=== PATIENT | male | born 1970 | race Asian ===

== ENCOUNTER 2018-12-02 21:08 | Outpatient (CLI) | payer OTHER | END 2018-12-02 21:12 | disposition short-term general hospital (02) | LOC: AMB 21:08 | DX: S21.302A Unspecified open wound of left front wall of thorax with penetration into thoracic cavity, initial encounter (principal); X95.9XXA Assault by unspecified firearm discharge, initial encounter; Y92.017 Garden or yard in single-family (private) house as the place of occurrence of the external cause | CPT/HCPCS: A0425; A0427 ==

== ENCOUNTER 2018-12-02 21:17 | Emergency (ER) | payer OTHER ==
[~2018-12-02] VITALS: Ht 172.7 cm; Wt 113.4 kg
[2018-12-02 21:17] VITALS: TEMP 98.2
[2018-12-02 21:55] VITALS: BP 122/65
== END 2018-12-02 21:55 | disposition short-term general hospital (02) ==
LOC: ED 21:17
PROC: 0T9B70Z Drainage of Bladder with Drainage Device, Via Natural or Artificial Opening (ICD-10-PCS; principal; 2018-12-02)
DX: S21.301A Unspecified open wound of right front wall of thorax with penetration into thoracic cavity, initial encounter (principal); S27.1XXA Traumatic hemothorax, initial encounter; X95.9XXA Assault by unspecified firearm discharge, initial encounter
CPT/HCPCS: 51702; 96360; 96365; 99291

== ENCOUNTER 2019-02-26 08:06 | Emergency (ER) | payer OTHER ==
[~2019-02-26] VITALS: Ht 170.2 cm; Wt 99.8 kg
[2019-02-26 08:57] LABS: PLATELET COUNT 424 K/uL (142-355)
[2019-02-26 09:03] LABS: POTASSIUM 3.8 mmol/L (3.6-5.2); SODIUM 136 mmol/L (136-145)
[2019-02-26 10:37] LABS: PARTIAL THROMBOPLASTIN TIME 25.6 SECONDS (24.5-33.6)
[2019-02-26 14:20] VITALS: BP 172/86; TEMP 98.3
== END 2019-02-26 14:26 | disposition home or self-care (01) ==
LOC: ED 08:08
PROVIDERS: Emergency Medicine Emergency Medical Services; Family Medicine
DX: R07.89 Other chest pain (principal); M94.0 Chondrocostal junction syndrome [Tietze]
CPT/HCPCS: 36415; 80053; 82550; 82553; 83880; 84484; 85027; 85379; 85610; 85730; 93005; 96374; 96375; 99284; J1170; J2405; Q9963

== ENCOUNTER 2020-01-24 17:19 | Emergency (ER) | payer OTHER ==
[~2020-01-24] VITALS: Ht 170.2 cm; Wt 99.8 kg
[2020-01-24 20:43] VITALS: BP 137/84; TEMP 99.1
== END 2020-01-24 20:46 | disposition home or self-care (01) ==
LOC: ED 17:19
DX: S09.8XXA Other specified injuries of head, initial encounter (principal); S39.012A Strain of muscle, fascia and tendon of lower back, initial encounter; S70.01XA Contusion of right hip, initial encounter; V89.2XXA Person injured in unspecified motor-vehicle accident, traffic, initial encounter; Y92.89 Other specified places as the place of occurrence of the external cause
CPT/HCPCS: 99283